=== PATIENT | male | born 1945 | race Caucasian/White ===

== ENCOUNTER 2017-12-01 10:37 | Inpatient (IN) | payer OTHER ==
[~2017-12-01] VITALS: Ht 170.1 cm; Wt 65.8 kg
--- NOTE | ~2017-12-01 | WRIGHTHP ---
[place], [place] PATIENT HISTORY AND PHYSICAL EXAM NAME: [facility]: [id number] UNIT #: [id number] ROOM: 314 DOCTOR: ERIN MCKEON MD BIRTHDATE: [birth year] DOS: 12/02/2017 INITIAL PSYCHIATRIC EVALUATION CHIEF COMPLAINT: "I have been here for 3 or 4 days, I am hope I am not here much longer." HISTORY OF PRESENT ILLNESS: This is a 72-year-old white male sent here on an involuntary basis from [facility]. The patient had presented there with family with altered mental status. The patient has been very bizarre and has been placing his keys in a sink, filling it with water repeatedly. He has been talking nonsensically. He is actively hallucinating and responding to unforeseen others. He has not been attending to his ADLs well and has been so grossly confused that family is concerned for his safety. He is admitted now to rule out organic factors, to stabilize on medication, to engage in individual and ambrocio milieu activity, to determine the least restrictive environment to which he can return. PAST MEDICAL HISTORY: Remarkable for major depression, recurrent. Hypertension, GERD, basal cell carcinoma, renal calculi, left inguinal hernia and Parkinson disease. SOCIAL HISTORY: He does not drink alcohol, use illicit drugs or smoke cigarettes currently. He did smoke when he was a younger man, but quit. ALLERGIES: HE LISTS ALLERGIES TO SUCCINYLCHOLINE AND TERAZOSIN. STRENGTHS: Good verbal skills and ambulatory. WEAKNESSES: Poor coping skills and cognitive decline. MENTAL STATUS: He is alert and oriented to person, place and that he knows he is in the hospital, but not time. He is very disjointed and fragmented in his thinking and grossly tangential and circumstantial. He has flight of ideas and jumps from topic to topic. Much of his rambling seems nonsensical as well. He does seem to be responding to unforeseen others. Memory for short term events is poor. DIAGNOSIS: Major depression, recurrent with psychotic features, rule out Alzheimer dementia. PLAN: I have already started him on Exelon patch 4.6 mg a day along with Namenda 5 mg a day. I will discontinue Cymbalta due to ineffectiveness and start him on Remeron 15 mg at bedtime to combat the depression. Remeron also has a secondary effect of improving Parkinson disease symptomatology. I will add Seroquel 25 mg twice daily as a low dose antipsychotic that has a very good EPS profile. We will engage in individual and ambrocio milieu activity. Will consult psychology regarding an opinion regarding competency and proceed with guardianship if warranted. [place], [place] PATIENT HISTORY AND PHYSICAL EXAM NAME: BRANDIN AYALA UNIT #: [id number] ROOM: [facility] DOCTOR: ERIN MCKEON MD BIRTHDATE: [birth year] ERIN MCKEON MD CM:HISPHYS:PATIENT HISTORY AND PHYSICAL EXAMINATION 7 1027 ERIN MCKEON MD 12/02/17 1025 interface
--- NOTE | ~2017-12-01 | PR ---
[place], [place] PROGRESS NOTE [id number] UNIT #: [id number] ROOM: 317 DOCTOR: IRVIN, PHD ZULEIKA BIRTHDATE: [birth year] DOS: 12/04/2017 I followed up with the patient today to reassess his cognitive status with respect to guardianship. He continues to exhibit significant confusion and did not respond appropriately to questions. In my opinion, he would benefit from utilizing his healthcare power of family law attorney to help him make healthcare decisions as he is clearly not competent at this time. Sherri Blake, PhD CM:NOY 1707 PHD ZULEIKA BLAKE 12/05/17 0036 interface
--- NOTE | ~2017-12-01 | PR ---
[place], [place] PROGRESS NOTE NAME: BRANDIN AYALA UNIT #: [id number] ROOM: 317 DOCTOR: IRVIN, PHD TO BIRTHDATE: [birth year] DOS: 12/03/2017 The patient remains delirious with significant urinary tract infection. We will continue to follow to assess for competency. Sherri Blake, PhD CM:PNTRANS 1733 [id number] PHD ZULEIKA BLAKE 12/04/17 0533 interface
--- NOTE | ~2017-12-01 | PR ---
[place], [place] PROGRESS NOTE NAME: BRANDIN AYALA UNIT #: [id number] ROOM: 317 DOCTOR: ERIN MCKEON MD BIRTHDATE: [birth year] DOS: 12/05/2017 ADDENDUM Above note reviewed. Agree with observations, recommendations, and overall treatment plan. ERIN MCKEON MD CM:PNTRANS 0 9 ERIN MCKEON MD 01/23/1840 interface
--- NOTE | ~2017-12-01 | PN ---
[place], [place] PROGRESS NOTE NAME: BRANDIN AYALA UNIT #: [id number] ROOM: 317 DOCTOR: ERIN MCKEON MD BIRTHDATE: [birth year] DATE: 12/04/17 ADDENDUM: ERIN MCKEON MD 01/22/18920 Above note reviewed. Agree with observations, recommendations, and overall treatment plan. ERIN MCKEON MD CM:PNTRANS 0 1452 TM ERIN MCKEON MD 01/23/18 0808 [place] MIS.TM
--- NOTE | ~2017-12-01 | CON ---
[place], [place] REPORT OF CONSULTATION NAME: BRANDIN AYALA UNIT #: [id number] ROOM: 314 DOCTOR: PHD IRVIN ZULEIKA BIRTHDATE: [birth year] DOS: 12/02/2017 HISTORY OF PRESENT ILLNESS: The patient is a 72-year-old male referred by Dr. Waterman for a competency evaluation. At the present time, the patient is on the [facility] at [facility]. The patient is and does not have any children. He did not provide a direct answer for his past appointment. He denied alcohol, tobacco and illegal drug use. PAST MEDICAL HISTORY: Depression, hypertension, GERD, basal cell carcinoma, renal calculi, left inguinal hernia, Parkinson's disease, major depressive disorder, recurrent. MEDICATIONS: Seroquel, Remeron, Exelon, Namenda, Geodon, Cipro, Ativan, Cymbalta. PHYSICAL EXAMINATION: The patient was awake, alert and oriented to person and place. He gave the date as 12/31/2017. He provided the president and past president, but no current events. Affect appear to be noteworthy for masked facies. Mood was stable. He denied suicidal and homicidal ideation. He demonstrated a bilateral pill rolling tremor and shuffling gait. The patient stated he stopped taking his medications prior to admission because they upset his stomach. He could not state what the medications were or what they were intended to treat. He indicated that since he stopped taking the medications, he has been doing "better than ever." Speech was soft. Thought process was tangential and noteworthy for flight of ideas. There were no overt hallucinations. Behavior was noteworthy for nearly urinating in a cup. IMPRESSION: I spoke with the patient's sister about the patient's baseline mental status. She stated that he has been confused off and on for the past few months, but believes that this confusion has been due to the medication changes he has been going through recently. In my opinion, the patient's current UTI is a contributing factor to his mental status and determination will be deferred until tomorrow to allow for continued treatment. DIAGNOSIS: Delirium, not otherwise specified. Thank you very much for this consult. Sherri Blake, PhD CM:CONSTR:REPORT OF CONSULTATION 1701 12/03/17 0010 interface
--- NOTE | ~2017-12-01 | PR ---
[place], [place] PROGRESS NOTE NAME: BRANDIN AYALA UNIT #: [id number] ROOM: 317 DOCTOR: ERIN MCKEON MD BIRTHDATE: [birth year] DOS: 12/04/2017 ADDENDUM Above note reviewed. Agree with observations, recommendations, and overall treatment plan. ERIN MCKEON MD CM:PNTRANS 0 [phone] ERIN MCKEON MD 01/23/18 0638 interface
--- NOTE | ~2017-12-01 | PR ---
[place], [place] PROGRESS NOTE NAME: [id number] UNIT #: [id number] ROOM: 317 DOCTOR: ERIN MCKEON MD BIRTHDATE: [birth year] DOS: 12/08/2017 INTERVAL NOTE CHIEF COMPLAINT: "I feel so much better doc. Thank you for everything you have done." SUMMARY OF THE VISIT: The patient was interviewed in the dining area where he was finishing his breakfast. He stood and shook my hand and thanked me profusely for everything I have done stating that he is feeling so much better. He is anxious to be able to return home as he is concerned about his sister. He was able to joke with me a little this morning. He convincingly denies medication side effects. MENTAL STATUS: He is alert and oriented with some time gaps. Mood does seem to be strongly trending towards euthymia. Affect is much more appropriate. There is no claudette or hypomania. No auditory or visual hallucinations are noted. Short term memory has some mild gaps, otherwise he is intact. PLAN: I will maintain his current psychotropic regimen. We will continue to engage him in individual and ambrocio milieu activity. We will finalize discharge plans returning to the least restrictive environment when psychiatrically stable. ERIN MCKEON MD CM:PNTRANS 0942 0250 ERIN MCKEON MD 12/09/17 0247 interface
--- NOTE | ~2017-12-01 | PR ---
[place], [place] PROGRESS NOTE NAME: BRNADIN AYALA UNIT #: [id number] ROOM: 317 DOCTOR: ERIN MCKEON MD BIRTHDATE: [birth year] DOS: 12/03/2017 CHIEF COMPLAINT: "You know I have UTI that usually makes me kind of crazy." SUMMARY OF THE VISIT: The patient was interviewed as he was sitting at the back of the dining area. He engaged readily in conversation. He continues to show episodic confusion and reports to me that he has been in the hospital for about 4-5 days now. He was able to tell me what he had for breakfast, but his memory gaps do seem to be patchy. Nurses report periods when he seems to be alert and oriented x 3 and other times when he is grossly confused. MENTAL STATUS EXAMINATION: On mental status this morning, he is alert and oriented to person, place, but not time. Mood does seem to be more euthymic. Affect is more appropriate. There is no claudette, hypomania, or psychosis. Short-term memory has gaps. PLAN: I will further increase his Exelon patch from 4.6 to 9.5 mg a day. He also requested something for constipation and I will order him Dulcolax straight at this point. Engage in individual and ambrocio milieu activity. Continue to support and monitor. ERIN MCKEON MD CM:PNTRANS [phone] 18 ERIN MCKEON MD 12/03/17 2216 interface
--- NOTE | ~2017-12-01 | DS ---
[place], [place] DISCHARGE SUMMARY NAME: BRANDIN AYALA [facility] #: [id number] UNIT #: [id number] ROOM: 317 DOCTOR: ERIN MCKEON MD BIRTHDATE: [birth year] DOS: 12/09/2017 CHIEF COMPLAINT: "I have been here 3 or 4 days, I hope I am not here much longer." HISTORY OF PRESENT ILLNESS: This is a 72-year-old white male who was sent here on an involuntary basis from [facility]. The patient had presented there with family with an altered mental status. The patient has been acting very bizarre. He has been placing his keys in the sink and filling it with water repeatedly. He has been talking nonsensically. He has been actively hallucinating and responding to unforeseen others. He has not been attending to his ADLs and he has been grossly confused and family is concerned for his safety. He is admitted now to rule out organic factors, to stabilize on medication and to engage in individual and ambrocio milieu activity. SUMMARY OF HOSPITAL COURSE: The patient was admitted to the unit where he was started on Exelon patch 4.6 mg daily in an order to improve or maintain ADLs, behavior and cognition. This was augmented then with Namenda 5 mg a day. His Cymbalta was discontinued due to ineffectiveness and he was started on Remeron [address]. Additionally, Seroquel 25 mg twice daily was initiated to help increase the effectiveness of the Remeron, to decrease his psychotic symptomatology and to decrease some of his anxiety. He tolerated all these medicines well. The Seroquel did not exacerbate his underlying parkinsonian symptoms. Over the course of time, his Exelon patch was gradually increased to its maximum dose of 13.3 mg daily, while the Namenda likewise was increased to its maximum dose of 10 mg twice daily. The Seroquel dose was increased from 25 mg twice daily to 25 mg 3 times daily with adequate results. The patient improved dramatically with this combination of medications. He was much more compliant and pleasant. He was not acting bizarrely. He did have episodes of increasing confusion, but these were lessening in frequency and intensity. He had improved sufficiently to return home. MENTAL STATUS AT DISCHARGE: The patient is alert and oriented to person, place and very approximate to time. Mood does seem to be strongly trending towards euthymia. Affect is much more appropriate. There is no claudette, hypomania or psychosis. Short term memory has gaps, otherwise he is intact. FINAL DIAGNOSES: Major depression, recurrent with psychotic features and Alzheimer's dementia. DISPOSITION: The patient All of his prescriptions have been printed and will be sent home with him. He will have followup in the community by the psychiatrist of his choice. [place], [place] DISCHARGE SUMMARY NAME: BRANDIN AYALA UNIT #: [id number] ROOM: 317 DOCTOR: ERIN MCKEON MD BIRTHDATE: [birth year] ERIN MCKEON MD CM:DISCHKELVIN 1102 26 ERIN MCKEON MD 12/09/172223 interface
[2017-12-01] MEDS ORDERED: NORVASC5 MG PO (10:44)
[2017-12-01] MEDS ORDERED: MIRAPEX0.25 M1 PO (10:45)
[2017-12-01] MEDS ORDERED: CYMBALTA30 MG PO (10:46)
[2017-12-01] MEDS ORDERED: NATURE'S BLEND F1 MG PO (10:47)
[2017-12-01 14:38] VITALS: BP 131/70
[2017-12-01 19:23] VITALS: BP 115/68
[2017-12-01 20:26] VITALS: BP 115/68
[2017-12-01 21:45] LABS: BILIRUBIN NEGATIVE (NEGATIVE); BLOOD 3+ (NEGATIVE); CLARITY SL CLOUDY (CLEAR); COLOR YELLOW (YELLOW); GLUCOSE NEGATIVE (NEGATIVE); KETONE NEGATIVE (NEGATIVE); LEUKO ESTERASE 3+ (NEGATIVE); NITRITE POSITIVE (NEGATIVE); PH 8.5 (5.0-9.0)
[2017-12-01 21:56] LABS: BACTERIA 4+; WBC 21-30 wbc/hpf (0-5)
[2017-12-02 06:28] LABS: BASO % 0.4 % (0.0-1.0); EOS # 0.2 10*3/uL (0.0-0.4); EOS % 1.7 % (1.0-4.0); HEMATOCRIT 40.1 % (42.0-52.0); HEMOGLOBIN 14.3 g/dl (14.0-18.0); LYMPH # 2.5 10*3/uL (1.3-4.4); LYMPH % 23.1 % (27.0-41.0); MEAN CELL VOLUME 91.3 fl (80.0-94.0); MEAN CORPUSCULAR HGB 32.6 pg (27.0-31.0); MEAN CORPUSCULAR HGB CONC 35.7 g/dl (33.0-37.0); MEAN PLATELET VOLUME 9.1 fl (9.6-12.3); MONO # 0.8 10*3/uL (0.1-1.0); MONO % 7.4 % (3.0-9.0); NEUT # 7.3 10*3/uL (2.3-7.9); NEUT % 67.1 % (47.0-73.0); PLATELET COUNT AUTOMATED 176 10*3/uL (130-400); RED BLOOD COUNT 4.39 10*6/uL (4.50-5.90); RED CELL DISTRI WIDTH 12.9 % (0-14.5); WHITE BLOOD COUNT 10.9 10*3/uL (4.8-10.8)
[2017-12-02 06:42] LABS: ALBUMIN 3.6 gm/dl (3.1-4.5); BUN 21 mg/dl (7-24); CHLORIDE 106 mmol/L (98-107); CHOLESTEROL 109 mg/dL (<200); CREATININE 0.79 mg/dL (0.70-1.30); POTASSIUM 3.4 mmol/L (3.5-5.1); SGOT/AST 17 IU/L (3-35); SGPT/ALT 21 U/L (12-78); SODIUM 139 mmol/L (136-145); TRIGLYCERIDES 45 mg/dl (<150); VLDL CHOLESTEROL 9 mg/dL (6-40)
[2017-12-02 06:51] LABS: ALKALINE PHOSPHATASE 73 U/L (45-117); HDL CHOLESTEROL 56 mg/dl (40-60); LDL CHOLESTEROL 44 mg/dL (9-159); TOTAL PROTEIN 6.7 gm/dL (6.4-8.2)
[2017-12-02 07:33] VITALS: BP 134/70
[2017-12-02 19:38] VITALS: BP 128/68
[2017-12-03 07:46] VITALS: BP 121/72
[2017-12-03 19:54] VITALS: BP 142/79
[2017-12-04 07:54] VITALS: BP 136/81
[2017-12-04 20:00] VITALS: BP 128/70
[2017-12-05 07:51] VITALS: BP 128/66
[2017-12-05 20:01] VITALS: BP 121/73
[2017-12-06 07:34] LABS: BUN 13 mg/dl (7-24); CHLORIDE 105 mmol/L (98-107); CREATININE 0.81 mg/dL (0.70-1.30); POTASSIUM 4.1 mmol/L (3.5-5.1); SODIUM 141 mmol/L (136-145)
[2017-12-06 07:36] VITALS: BP 113/74
[2017-12-06 20:00] VITALS: BP 118/70
[2017-12-07 07:12] VITALS: BP 122/74
[2017-12-07 19:54] VITALS: BP 116/70
[2017-12-08 08:59] VITALS: BP 138/78
[2017-12-08 20:34] VITALS: BP 135/76
[2017-12-09 08:21] VITALS: BP 149/86
[2017-12-09] MEDS ORDERED: QUETIAPINE FUMA25 MG PO (10:55)
[2017-12-09] MEDS ORDERED: MIRTAZAPINE15 M2 PO (10:55)
[2017-12-09] MEDS ORDERED: MEMANTINE HCL10 MG PO (10:55)
[2017-12-09] MEDS ORDERED: EXELON13.3 MG/21 T (10:55)
== END 2017-12-09 13:24 | disposition home or self-care (01) | DRG 885 ==
LOC: 3N 10:37
PROVIDERS: Psychiatry & Neurology Psychiatry
PROC: 0HBRXZZ Excision of Toe Nail, External Approach (ICD-10-PCS; principal; 2017-12-02)
DX: F33.3 Major depressive disorder, recurrent, severe with psychotic symptoms (principal); F23 Brief psychotic disorder; N39.0 Urinary tract infection, site not specified; G20 Parkinson's disease; K21.9 Gastro-esophageal reflux disease without esophagitis; G30.9 Alzheimer's disease, unspecified; F02.80 Dementia in other diseases classified elsewhere, unspecified severity, without behavioral disturbance, psychotic disturbance, mood disturbance, and anxiety; I10 Essential (primary) hypertension; Z87.442 Personal history of urinary calculi; Z85.89 Personal history of malignant neoplasm of other organs and systems; Z88.8 Allergy status to other drugs, medicaments and biological substances; Z79.899 Other long term (current) drug therapy

== ENCOUNTER 2018-04-27 19:25 | Inpatient (IN) | payer OTHER ==
[~2018-04-27] VITALS: Ht 167.6 cm; Wt 65.1 kg
--- NOTE | ~2018-04-27 | PR ---
[place], [place] PROGRESS NOTE NAME: BRANDIN AYALA UNIT #: [id number] ROOM: 315 DOCTOR: ERIN MCKEON MD BIRTHDATE: [birth year] DOS: 04/30/2018 INTERVAL NOTE CHIEF COMPLAINT: "I just want to know what people are saying about me and my sister." SUMMARY OF THE VISIT: The patient was interviewed in the dining area where he was eating his breakfast. He continues to be very anxious and perseverative, very much focused on people plotting against him or talking about him. This behavior intensifies in the evening hours when he becomes almost unmanageable and does require p.r.n. intervention. MENTAL STATUS: He remains alert and oriented with time gaps. Mood does seem to be trending towards euthymia, but there is a great deal of anxiety and paranoia present. Short-term memory does have significant gaps. PLAN: I will increase his Fanapt from 2 mg twice a day to 4 mg twice a day as we attempt to bring him therapeutic, attempting to lessen psychosis without exacerbating his underlying parkinsonian symptoms. We will engage in individual and ambrocio milieu activities, returning then to the least restrictive environment when psychiatrically stable. ERIN MCKEON MD CM:PNTRANS 1312 ERIN MCKEON MD 04/30/18 1313 interface
--- NOTE | ~2018-04-27 | PR ---
[place], [place] PROGRESS NOTE NAME: [facility] [id number] UNIT #: [id number] ROOM: 317 DOCTOR: ERIN MCKEON MD BIRTHDATE: [birth year] DOS: 05/06/2018 CHIEF COMPLAINT: The patient was somnolent. SUMMARY OF THE VISIT: The patient was attempted to be interviewed as he was sitting in the dining area. He was rather somnolent and hard to arouse. Nurses report that yesterday was a much better day that his tremors seemed less and his agitation was less. He was also much more goal directed in his thinking. He did have breakfast this morning and afterwards that seem to tire him out. MENTAL STATUS: My mental status is limited due to his overall level of somnolence. PLAN: I will maintain his current psychotropic regimen and allow him some time to adjust to the medication changes. Monitor for risk, benefit, engage in individual and ambrocio milieu activity, returning then to the least restrictive environment when psychiatrically stable. ERIN MCKEON MD CM:PNTRANS 1253 0423 ERIN MCKEON MD 05/07/18 0423 interface
--- NOTE | ~2018-04-27 | PR ---
[place], [place] PROGRESS NOTE [id number] UNIT #: [id number] ROOM: 317 DOCTOR: ERIN MCKEON MD BIRTHDATE: [birth year] DOS: 05/08/2018 CHIEF COMPLAINT: "Can I stay here permanently. You will think I am crazy, but there is a emery here that has it in for me." SUMMARY OF THE VISIT: The patient requested to talk to me in private. He at first asked if he could stay here permanently. When I told him that this was an acute care hospital and we ultimately would need to step him down back to [facility] as we await for the Nuplazid to work, he understood. He then told me that there is another patient here that he perceives as trying to get him that he is making comments and staring him down. I did reinforce that we would be watching closely for such things and making certain that we would protect both gentleman involved. Otherwise, from a physical standpoint, he is ambulating much more steadily. His hand tremors have almost completely dissipated. He is much more conversant and much more spontaneous. MENTAL STATUS: He is alert and oriented with time gaps. Mood does seem to be trending towards euthymia. Affect is more appropriate. There is no claudette or hypomania. The psychosis is lessening, but there is still baseline paranoia. Memory has gaps. PLAN: I will go ahead and check a valproic acid level tomorrow at 1500 hours to see if the Depakote ER is therapeutic, may need to adjust by another 500 mg or so to bring it into the range of 60-80. We will continue to support and monitor. Continue to engage in individual and ambrocio milieu activity, returning then to the least restrictive environment when psychiatrically stable. ERIN MCKEON MD CM:PNTRANS 0851 1433 ERIN MCKEON MD 05/08/18 1433 interface
--- NOTE | ~2018-04-27 | PR ---
[place], [place] PROGRESS NOTE NAME: BRANDIN AYALA UNIT #: [id number] ROOM: 317 DOCTOR: ERIN MCKEON MD BIRTHDATE: [birth year] DOS: 05/01/2018 CHIEF COMPLAINT: "Morning." SUMMARY OF THE VISIT: The patient was interviewed or attempted to be interviewed as he was resting in bed. He was very somnolent and hard to arouse and eventually I did get him to make eye contact, say good morning, but he nodded back off. He got very agitated and aggressive last evening acting very bizarrely once again with sundowning type behavior. With this was in the company of increase in his paranoia and hallucinations. This seems to be happening now consistently every evening requiring p.r.n. intervention, which eventually works, but has now caused him to have some residual somnolence in the morning. MENTAL STATUS: Limited to the fact that he is alert to self. Could not test any further because of his overall level of somnolence. PLAN: I will go ahead and increase the Fanapt increasing specifically the nighttime dose, so I will make the dose 4 mg in the morning and 8 mg at 1700 hours to try to head off this sundowning type behavior. I will simultaneously increase the Artane from 2 mg t.i.d. to 5 mg b.i.d. to decrease some of the parkinsonian symptoms that he is experiencing. We will monitor for risk, benefits, engage in individual and ambrocio milieu activity, returning to the least restrictive environment when psychiatrically stable. ERIN MCKEON MD CM:PNTRANS 0847 1514 ERIN MCKEON MD 05/01/18 1514 interface
--- NOTE | ~2018-04-27 | EKG ---
[place], [place] ELECTROCARDIOGRAM REPORT NAME: BRANDIN AYALA UNIT #: [id number] ROOM: 315 DOCTOR: THAO DRAFT REPORT BIRTHDATE: [birth year] [facility] Test Date: 2018-04-27 Test Time: 19:48:09 Pat Name: BRANDIN AYALA Department: Room: [facility] Gender: M Archivist Economic History: CHARY : 1945 Requested By: WARREN CASTILLO PA-C Order Number: [id number] Reading MD: Carlota Wen MD Measurements Intervals [place] Rate: 75 P: 38 ND: 166 QRS: -63 QRSD: 92 T: 57 QT: 383 QTc: 428 Interpretive Statements Sinus rhythm Inferior infarct, old Electronically Signed On 04-29-2018 14:13:49 PST by Carlota Wen MD CM:EKGRPT:ELECTROCARDIOGRAM REPORT 47 1413 WARREN OSUNA DRAFT REPORT WARREN CASTILLO PA-C
--- NOTE | ~2018-04-27 | PR ---
[place], [place] PROGRESS NOTE NAME: BRANDIN AYALA UNIT #: [id number] ROOM: 315 DOCTOR: ERIN MCKEON MD BIRTHDATE: [birth year] DOS: 04/29/2018 INTERVAL NOTE CHIEF COMPLAINT: "I did something and they took pictures, just because of that it does not make me desai you know." SUMMARY OF THE VISIT: The patient was interviewed in the dining area where he was working on a puzzle. He stopped and engaged readily in conversation with me. He continues to be very paranoid and delusional, now fixated on reported pictures that were taken at a [employer] that showed him in a potentially compromising situation. He has alternated between being fixated on this and still being somewhat paranoid regarding a hitman coming to kill him. He was not outwardly shaking near as much as he had been yesterday, so the Artane may already be impacting positively on his tremors. MENTAL STATUS: He is alert and oriented with significant time gaps. Mood does seem to be very depressed with anxious overtones and significant paranoia. Short-term memory remains problematic. PLAN: I will continue my gradual titration of the Fanapt increasing it from 1 mg twice a day to 2 mg twice a day, maintain his other psychotropics, engage in individual and ambrocio milieu activities, returning then to the least restrictive environment when psychiatrically stable. ERIN MCKEON MD CM:PNTRANS 1137 1147 ERIN MCKEON MD 04/29/18 1147 interface
--- NOTE | ~2018-04-27 | WRIGHTHP ---
[place], [place] PATIENT HISTORY AND PHYSICAL EXAM NAME: BRANDIN AYALA [facility] #: [id number] UNIT #: [id number] ROOM: 315 DOCTOR: ERIN MCKEON MD BIRTHDATE: [birth year] DOS: 04/28/2018 CHIEF COMPLAINT: "Something has to be done. They were going to send a hitman after me." HISTORY OF PRESENT ILLNESS: This is a 72-year-old white male known to me from his stay at [facility] as well as a previous admission here to the [facility]. The patient was sent from [facility] here due to worsening paranoia. The patient was very fearful that the facility was hiring a hitman to kill him. He reports that he overheard the nurses talking about this. He also was very concerned that his sister was starving to and was not going to be getting food or the care she needed. He is very fearful and anxious and is not able to function. He is not attending to his ADLs. He has not been sleeping well. He has not been eating well. He is admitted now to rule out organic factors and attempt to stabilize on medication. PAST MEDICAL HISTORY: Remarkable for hypertension, GERD, basal cell carcinoma, renal calculi, left inguinal hernia and Parkinson's disease. The patient is a former smoker, having smoked a half a pack a day for about 8 years, quitting in 1973. He is a social drinker. He does not use illicit drugs. ALLERGIES: He lists allergies to succinylcholine and terazosin. STRENGTHS: Ambulatory, good verbal skills. WEAKNESSES: Poor coping skills and chronic psychiatric problems. MENTAL STATUS: The patient is alert and oriented to person, place, but not necessarily time. Mood does seem to be very depressed with anxious overtones. He is very paranoid and delusional. There is no claudette or hypomania. Short-term memory has gaps. PLAN: I will discontinue his Risperdal as this is too strongly an antipsychotic and could exacerbate his Parkinsons. I will use Fanapt 1 mg b.i.d. and titrate upwards. Fanapt has a very favorable extrapyramidal symptom side effect profile. I will start him on Artane 2 mg t.i.d. and consider Sinemet. We will also discuss the possibility of trying him on Nuplazid. We will engage in individual and ambrocio milieu activities, returning to the least restrictive environment when psychiatrically stable. [place], [place] PATIENT HISTORY AND PHYSICAL EXAM NAME: BRANDIN AYALA UNIT #: [id number] ROOM: [facility] DOCTOR: ERIN MCKEON MD BIRTHDATE: [birth year] ERIN MCKEON MD CM:HISPHYS:PATIENT HISTORY AND PHYSICAL EXAMINATION 0950 1028 ERIN MCKEON MD 04/28/18 1029 interface
--- NOTE | ~2018-04-27 | PR ---
[place], [place] PROGRESS NOTE [id number] UNIT #: [id number] ROOM: 317 DOCTOR: DEEPA MORALES DPM BIRTHDATE: [birth year] DOS: 05/04/2018 SUBJECTIVE: This patient is seen for followup of a left leg wound. The patient has no complaints of pain. Denies fever or chills. Denies calf pain. OBJECTIVE: Neurovascular status is unchanged. There is still eschar present noted at the anteromedial aspect to the left lower leg. No surrounding erythema, no purulent drainage or malodor. No clinical signs of infection. ASSESSMENT: Left leg ulcer, noninfected. PLAN: Evaluation and management. Continue with local wound care to the area. Continue with current treatment plan. Continue offloading. Continue to follow while in the hospital. DEEPA MORALES DPM CM:PNTRANS [id number] DEEPA MORALES DPM 05/04/18 1444 interface
--- NOTE | ~2018-04-27 | CON ---
[place], [place] REPORT OF CONSULTATION NAME: BRANDIN AYALA [facility] #: [id number] UNIT #: [id number] ROOM: 317 DOCTOR: PHD IRVIN ZULEIKA BIRTHDATE: [birth year] DOS: 05/04/2018 HISTORY OF PRESENT ILLNESS: The patient is a 72-year-old male referred by Dr. Waterman for competency evaluation. At the present time, the patient is on the [facility] at [facility]. He is and does not have any children. 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 He denied alcohol, tobacco or illegal drug use. PAST MEDICAL HISTORY: Hypertension, GERD, basal cell carcinoma, renal calculi, left inguinal hernia, and Parkinson's disease. MEDICATIONS: Depakote Sprinkle, Desyrel, Artane, Senokot, Mirapex, Zestril, Colace, vitamin D, folic acid, Norvasc, Exelon, Tylenol, Namenda, Geodon, Bactroban, Ativan. The patient was awake, alert and oriented to person, place, and generally to time. Affect was flat and mood was stable. He denied suicidal or homicidal ideation, plan and intent. He appeared to be guarded and paranoid. Speech was slow, soft and at times difficult to decipher. He did not consistently respond to questions appropriately. At times, he appeared to be responding to internal stimuli. He demonstrated some short term memory deficits during the assessment. He could not name the president or any current events. He was difficult to redirect in conversation as he jumped from topic to topic. He does not appear to be competent to make informed healthcare decisions at this time. His sister is his power of bark tanner for healthcare and all healthcare decisions should be deferred to her. DIAGNOSES: Unspecified neurocognitive disorder; major depressive disorder, recurrent, severe with psychotic features. RECOMMENDATIONS: In my opinion, this patient is not competent to make informed healthcare decisions. All healthcare decisions should be deferred to his healthcare power of bark tanner who is his sister. Thank you very much for this consult. Sherri Blake, PhD CM:CONSTR:REPORT OF CONSULTATION 1704 05/05/18 1406 interface
--- NOTE | ~2018-04-27 | DS ---
[place], [place] DISCHARGE SUMMARY NAME: BRANDIN AYALA [facility] #: [id number] UNIT #: [id number] ROOM: 317 DOCTOR: ERIN MCKEON MD BIRTHDATE: [birth year] DOS: 05/12/2018 CHIEF COMPLAINT: "Something has to be done. They are going to send the hitman after me." HISTORY OF PRESENT ILLNESS: This is a 72-year-old white male known to me from his stay at [facility] as well as a previous admission here to the [facility]. The patient was sent here from [facility] due to worsening paranoia. He is very fearful that the facility was sending a hitman to kill him. He reports that he overheard multiple nurses talking about this and is very concerned that he is going to be killed in his sleep. He is also very concerned that his sister, who is struggling with multiple sclerosis is starving to and is not fully getting food or the care she needs. He is very fearful and anxious and is not able to function. He was admitted here because of his significant psychiatric and medical decline. SUMMARY OF THE VISIT: The patient was admitted, where his Risperdal was stopped because it was a strong antipsychotic with significant extrapyramidal symptoms. He was started on Fanapt, but this too did seem to exacerbate his Parkinson, so ultimately the Fanapt was discontinued. He was started on Artane to decrease his significant tremors and the dose was started at 2 mg t.i.d. and eventually brought up to 5 mg twice a day. Ultimately, after the Fanapt was stopped, it was felt that the only drug that was reasonable to decrease his psychosis and hallucinations due to the Parkinson was Nuplazid. Samples were obtained and given to him and he was started on Nuplazid 34 mg at bedtime with excellent results. The patient improved significantly with this combination. He was also on Exelon patch 13.3 mg a day and Namenda 10 mg twice daily to impact positively on ADLs, behavior and cognition. The patient had started to improve significantly and it was felt that further improvement would be continued once he was readmitted to [facility]. He was sent back there for further care. MENTAL STATUS AT DISCHARGE: He is alert and oriented with significant time gaps. Mood does seem to be strongly trending towards euthymia. Affect is much more appropriate. There is no claudette or hypomania. There is no gross psychosis, although this is somewhat sketchy and does seem to worsen in the evening. His memory also is poor, especially for short term events. DIAGNOSIS UPON DISCHARGE: Major depression, recurrent; intermittent explosive disorder and Alzheimer's dementia. DISPOSITION: All of his prescriptions have been E-scribed to [facility], which is a long-term care pharmacy. At the time of discharge, he was medically stable and psychiatrically, there was no acute issues. [place], [place] DISCHARGE SUMMARY NAME: BRANDIN AYALA UNIT #: [id number] ROOM: 317 DOCTOR: ERIN MCKEON MD BIRTHDATE: [birth year] ERIN MCKEON MD CM:ALEXIS [id number] ERIN MCKEON MD 05/12/18 1034 interface
--- NOTE | ~2018-04-27 | PR ---
[place], [place] PROGRESS NOTE NAME: BRANDIN AYALA UNIT #: [id number] ROOM: 317 DOCTOR: ERIN MCKEON MD BIRTHDATE: [birth year] DOS: 05/03/2018 CHIEF COMPLAINT: "The patient talked nonsensical." SUMMARY OF THE VISIT: The patient was interviewed or attempted to be interviewed as he was sitting in a Amanda chair in the dining area. He made a little to no sense and did not respond to me, but seem to be responding to unforeseen others. Yesterday, the nurses report he had a horrible late afternoon, evening. He became increasingly psychotic and very agitated and aggressive. He required the use of p.r.n. intervention that eventually worked causing a little bit of early morning babysitter somnolence, but no other side effects. MENTAL STATUS: He is alert and oriented to self only. He is very confused and disjointed. His thoughts are fragmented and piecemeal and he is grossly psychotic. PLAN: I will discontinue the Sinemet that I started yesterday as this could already be feeling psychosis. I will adjust the trazodone to be given 150 mg at 1600 hours and utilize another 150 mg at bedtime p.r.n., should he require intervention. I will also increase his Fanapt to 4 mg in the morning and 12 mg at bedtime, trying to help him sleep and offset some of this nighttime behavior. We will engage in individual and ambrocio milieu activity, returning to the least restrictive environment when psychiatrically stable. ERIN MCKEON MD CM:PNTRANS [id number] ERIN MCKEON MD 05/04/18 0449 interface
--- NOTE | ~2018-04-27 | PR ---
[place], [place] PROGRESS NOTE NAME: BRANDIN AYALA UNIT #: [id number] ROOM: 317 DOCTOR: ERIN MCKEON MD BIRTHDATE: [birth year] DOS: 05/04/2018 CHIEF COMPLAINT: "Oh, I need somebody to help me get dressed." SUMMARY OF THE VISIT: The patient was interviewed as he was resting in a Amanda chair in the dining area. He was more awake this morning than yesterday. Nurses report that he continues to and become increasingly delusional and psychotic and agitated in the evening, requiring p.r.n. intervention. MENTAL STATUS EXAMINATION: This morning, he is alert and oriented with significant time gaps. Mood was more euthymic. Affect more appropriate. There is no hypomania or claudette. He is rather confused and disjointed and fragmented in his thinking. PLAN: At this point in time, I will discontinue his Fanapt as this seems to be exacerbating his movement disorder. I will start him on Depakote Sprinkles 250 mg twice daily and 500 mg at bedtime in a way to stabilize mood without utilizing an antipsychotic. Will engage in individual and ambrocio milieu activity, returning to the least restrictive environment when psychiatrically stable. ERIN MCKEON MD CM:PNTRANS [id number] 140 ERIN MCKEON MD 05/04/18 1403 interface
--- NOTE | ~2018-04-27 | PR ---
[place], [place] PROGRESS NOTE NAME: BRANDIN AYALA UNIT #: [id number] ROOM: 317 DOCTOR: ERIN MCKEON MD BIRTHDATE: [birth year] DOS: 05/05/2018 CHIEF COMPLAINT: "Oh good morning, Dr. Mckeon, how are you?" SUMMARY OF THE VISIT: The patient was interviewed in the dining area where one of the aides was helping him eat. He had eaten in an entire tray of breakfast and was asking for seconds. Nurses report that his appetite has been very good. He is still not necessarily sleeping through the night, but he napped frequently yesterday. He is much more awake and interactive once I discontinued the Fanapt and his jerking motions have dramatically improved. This is the second antipsychotic now that he has had a significant side effect with. He seems extremely prone to the extrapyramidal symptoms of antipsychotics and is definitely a Nuplazid candidate. With the Depakote in place, he does seem to be more stable and is tolerating it well. I will support and monitor. MENTAL STATUS: He is alert and oriented with time gaps. Mood does seem to be more stable, but does still experience lability and nurses report that he sundowns in the evening. There are no overt auditory or visual hallucinations at the present, but these too worsen in the evening. His short term memory does have gaps. PLAN: I will renew his Ativan p.r.n., should he require intervention. I am working with pharmacy to see if we can obtain the Nuplazid and would plan to start this if at all possible. Continue to support and monitor, engage in individual and ambrocio milieu activity, returning to the least restrictive environment when psychiatrically stable. ERIN MCKEON MD CM:PNTRANS 1039 ERIN MCKEON MD 05/05/18 1040 interface
--- NOTE | ~2018-04-27 | PR ---
[place], [place] PROGRESS NOTE NAME: BRANDIN AYALA UNIT #: [id number] ROOM: 317 DOCTOR: ERIN MCKEON MD BIRTHDATE: [birth year] DOS: 05/07/2018 CHIEF COMPLAINT: "Oh, when do I get to leave here." SUMMARY OF THE VISIT: The patient was interviewed as he was sitting in the dining area, eating his breakfast. He had approximately 3/4 of his breakfast finished. He stopped and engaged readily in conversation with me. The first half of the conversation was much more goal directed and reasonable; as he continued to talk, he mixed nonsensical issues. He does seem to be improving. I did also have him hold his hands out and his tremors of his upper extremities have vastly improved. MENTAL STATUS: He is alert and oriented to person, place, not to time. Mood does seem to be trending towards euthymia. Affect is more appropriate. There is no claudette or hypomania or psychosis now; however, he does sundown and become grossly psychotic as afternoon turns into evening. Nurses report that 4:00 is a pivotal hour for him. PLAN: I will go ahead and change his Depakote Sprinkles to Depakote ER 1500 mg to be given at 1600 hours to see if this will help with some of the sundowning. We will engage in individual and ambrocio milieu activity, returning then to the least restrictive environment when psychiatrically stable. ERIN MCKEON MD CM:PNTRANS [id number] [id number] ERIN MCKEON MD 05/07/18 1530 interface
--- NOTE | ~2018-04-27 | PR ---
[place], [place] PROGRESS NOTE [id number] UNIT #: [id number] ROOM: 317 DOCTOR: ERIN MCKEON MD BIRTHDATE: [birth year] DOS: 05/11/2018 CHIEF COMPLAINT: "Dr. Mckeon, give me a straight answer where am I." SUMMARY OF THE VISIT: The patient was interviewed after he had eaten his breakfast. He was sitting comfortably in the dining area. He engaged readily in conversation. He reported to me that he does not feel that people are giving him the straight answer to where he is at, and I have redirected him that he is at [facility] and that the plan is for him to go to [facility] for further care. He did nod and states that is what his sister, Emely, told him as well. For the most part his conversation with me this morning was goal directed; however, nurses report he has episodes of extreme confusion, paranoia and anxiety. MENTAL STATUS: He is alert and oriented to person, unclear place, certainly not time. Mood does seem to be trending more towards euthymia. Affect is more appropriate. There is no claudette, hypomania or psychosis noted at this time. Short term memory continues to be problematic. PLAN: I will maintain his current psychotropic regimen, continue to engage in individual and ambrocio milieu activity, returning then to the least restrictive environment when psychiatrically stable. ERIN MCKEON MD CM:PNTRANS [phone] ERIN MCKEON MD 05/11/18 1516 interface
--- NOTE | ~2018-04-27 | PR ---
[place], [place] PROGRESS NOTE NAME: BRANDIN AYALA UNIT #: [id number] ROOM: 317 DOCTOR: ERIN MCKEON MD BIRTHDATE: [birth year] DOS: 05/02/2018 CHIEF COMPLAINT: "Oh, hi Dr. Mckeon, its good to see you." SUMMARY OF THE VISIT: The patient was interviewed as he was sitting eating his breakfast. He was much more awake, alert and conversant. Nurses' report that yesterday he had a very good day and that the day was punctuated in the evening with increased agitation and aggression. The patient sundown horribly and became very combative, was pounding on doors and was very physically threatening. Otherwise, during the daytime hours he was pleasant. This morning, he was very pleasant with me and had no recollection of these behaviors. He continues to have significant parkinsonian tremors. MENTAL STATUS: He is alert and oriented with time gaps. Mood does seem to be still labile. Affect is still at times inappropriate. He does not voice hallucinations or delusions currently, but this is still persistent. PLAN: I will discontinue Remeron due to ineffectiveness and start him on trazodone 150 mg at bedtime to combat depression and also to improve sleep. Given the severity of his parkinsonian tremors, I will go ahead and start Sinemet 10-100 one tablet t.i.d. with meals. We will monitor and support, engage in individual and ambrocio milieu activity, returning then to the least restrictive environment when psychiatrically stable. ERIN MCKEON MD CM:PNTRANS [id number] ERIN MCKEON MD 05/02/18 1730 interface
[~2018-04-27 19:25] MED LIST: CYMBALTA30 MG PO; EXELON13.3 MG/21 T; MEMANTINE HCL10 MG PO; MIRAPEX0.25 M1 PO; MIRTAZAPINE15 M2 PO; NATURE'S BLEND F1 MG PO; NORVASC5 MG PO; QUETIAPINE FUMA25 MG PO
[2018-04-27 19:30] VITALS: BP 128/73
[2018-04-27 19:52] LABS: BASO % 0.5 % (0.0-1.0); EOS # 0.1 10*3/uL (0.0-0.4); EOS % 1.7 % (1.0-4.0); HEMATOCRIT 39.7 % (42.0-52.0); HEMOGLOBIN 14.4 g/dl (14.0-18.0); LYMPH # 2.9 10*3/uL (1.3-4.4); LYMPH % 35.7 % (27.0-41.0); MEAN CELL VOLUME 89.4 fl (80.0-94.0); MEAN CORPUSCULAR HGB 32.4 pg (27.0-31.0); MEAN CORPUSCULAR HGB CONC 36.3 g/dl (33.0-37.0); MEAN PLATELET VOLUME 8.7 fl (9.6-12.3); MONO # 0.7 10*3/uL (0.1-1.0); MONO % 8.5 % (3.0-9.0); NEUT # 4.3 10*3/uL (2.3-7.9); NEUT % 53.4 % (47.0-73.0); PLATELET COUNT AUTOMATED 195 10*3/uL (130-400); RED BLOOD COUNT 4.44 10*6/uL (4.50-5.90); RED CELL DISTRI WIDTH 13.2 % (0-14.5)
[2018-04-27 20:06] LABS: ACETAMINOPHEN (TYLENOL) < 5.0 ug/ml (10-30); ALBUMIN 3.7 gm/dl (3.1-4.5); ALKALINE PHOSPHATASE 89 U/L (45-117); BUN 19 mg/dl (7-24); CHLORIDE 106 mmol/L (98-107); CREATININE 0.88 mg/dL (0.70-1.30); ETHYL ALCOHOL < 3.0 mg/dl (<3); POTASSIUM 4.1 mmol/L (3.5-5.1); SGOT/AST 14 IU/L (3-35); SGPT/ALT 14 U/L (12-78); SODIUM 139 mmol/L (136-145); TOTAL PROTEIN 7.1 gm/dL (6.4-8.2)
[2018-04-27 20:31] LABS: BILIRUBIN NEGATIVE (NEGATIVE); BLOOD TRACE-INTACT (NEGATIVE); CLARITY CLEAR (CLEAR); COLOR YELLOW (YELLOW); GLUCOSE NEGATIVE (NEGATIVE); KETONE NEGATIVE (NEGATIVE); LEUKO ESTERASE NEGATIVE (NEGATIVE); NITRITE NEGATIVE (NEGATIVE); PH 5.5 (5.0-9.0); UROBILINOGEN 0.2 E.U./dl (0.2-1.0)
[2018-04-27 20:42] LABS: URINE AMPHETAMINES < 1000 (1000ng/ml); URINE BARBITURATES < 200 (200ng/ml); URINE BENZODIAZEPINES < 200 (200ng/ml); URINE CANNABINOIDS (THC) < 50 (50ng/ml); URINE COCAINE < 300 (300ng/ml); URINE METHADONE < 300 (300ng/ml); URINE OPIATES < 300 (300ng/ml)
[2018-04-27 20:51] LABS: BACTERIA TRACE; RBC 0-2 rbc/hpf (0-2)
[2018-04-27 20:52] LABS: URINE PHENCYCLIDINE < 25 (25ng/ml)
[2018-04-27] MEDS ORDERED: VITAMIN D31000 UNI1 PO (22:29)
[2018-04-27] MEDS ORDERED: COLACE100 MG PO (22:30)
[2018-04-27 22:32] VITALS: BP 134/86
[2018-04-27] MEDS ORDERED: LISINOPRIL10 M1 PO (22:32)
[2018-04-27] MEDS ORDERED: SENNO8.6 MG PO (22:39)
[2018-04-27 23:14] VITALS: BP 134/86
[2018-04-28 06:39] LABS: THYROID STIM HORMONE (HS) 2.26 uIU/ml (0.358-4.75)
[2018-04-28 07:18] LABS: VITAMIN D, 25-HYDROXY 32.7 ng/mL (30-100)
[2018-04-28 08:02] VITALS: BP 125/79
[2018-04-28 20:41] VITALS: BP 128/72
[2018-04-29 07:38] VITALS: BP 102/70
[2018-04-29 20:00] VITALS: BP 110/66
[2018-04-29 22:15] VITALS: BP 98/62
[2018-04-30 07:43] VITALS: BP 103/59
[2018-04-30 20:00] VITALS: BP 108/68
[2018-05-01 07:38] VITALS: BP 120/62
[2018-05-01 20:00] VITALS: BP 126/67
[2018-05-02 07:37] VITALS: BP 122/68
[2018-05-02 19:51] VITALS: BP 101/75
[2018-05-03 07:27] VITALS: BP 106/74
[2018-05-03 19:59] VITALS: BP 108/74
[2018-05-04 08:40] LABS: BASO % 0.4 % (0.0-1.0); EOS # 0.1 10*3/uL (0.0-0.4); EOS % 0.8 % (1.0-4.0); HEMOGLOBIN 13.2 g/dl (14.0-18.0); LYMPH # 1.3 10*3/uL (1.3-4.4); LYMPH % 15.6 % (27.0-41.0); MEAN CELL VOLUME 91.8 fl (80.0-94.0); MEAN CORPUSCULAR HGB 31.9 pg (27.0-31.0); MEAN CORPUSCULAR HGB CONC 34.7 g/dl (33.0-37.0); MEAN PLATELET VOLUME 9.2 fl (9.6-12.3); MONO # 0.5 10*3/uL (0.1-1.0); MONO % 6.4 % (3.0-9.0); NEUT # 6.5 10*3/uL (2.3-7.9); NEUT % 76.4 % (47.0-73.0); PLATELET COUNT AUTOMATED 174 10*3/uL (130-400); RED BLOOD COUNT 4.14 10*6/uL (4.50-5.90); RED CELL DISTRI WIDTH 12.8 % (0-14.5); WHITE BLOOD COUNT 8.5 10*3/uL (4.8-10.8)
[2018-05-04 08:45] LABS: ALBUMIN 3.9 gm/dl (3.1-4.5); ALKALINE PHOSPHATASE 90 U/L (45-117); BUN 24 mg/dl (7-24); CHLORIDE 106 mmol/L (98-107); SGOT/AST 28 IU/L (3-35); SGPT/ALT 23 U/L (12-78); SODIUM 139 mmol/L (136-145); TOTAL PROTEIN 7.2 gm/dL (6.4-8.2)
[2018-05-04 19:36] VITALS: BP 116/72
[2018-05-05 07:41] VITALS: BP 128/66
[2018-05-05 20:00] VITALS: BP 118/57
[2018-05-06 08:02] VITALS: BP 125/61
[2018-05-06 20:00] VITALS: BP 121/60
[2018-05-07 07:42] VITALS: BP 138/72
[2018-05-07 20:00] VITALS: BP 121/84
[2018-05-08 07:27] VITALS: BP 112/60
[2018-05-08 20:00] VITALS: BP 133/77
[2018-05-08 22:29] LABS: ALBUMIN 3.5 gm/dl (3.1-4.5); ALKALINE PHOSPHATASE 93 U/L (45-117); BUN 15 mg/dl (7-24); CHLORIDE 104 mmol/L (98-107); CREATININE 0.85 mg/dL (0.70-1.30); SGOT/AST 6 IU/L (3-35); SGPT/ALT 17 U/L (12-78); SODIUM 138 mmol/L (136-145); TOTAL PROTEIN 7.3 gm/dL (6.4-8.2)
[2018-05-09 07:18] VITALS: BP 118/69
[2018-05-09 20:00] VITALS: BP 102/59
[2018-05-10 07:13] VITALS: BP 116/57
[2018-05-10 20:00] VITALS: BP 125/60
[2018-05-11 07:49] VITALS: BP 146/74
[2018-05-11 20:00] VITALS: BP 149/67
[2018-05-12 07:18] VITALS: BP 104/58
[2018-05-12] MEDS ORDERED: EXELON13.3 MG/21 T (09:41)
[2018-05-12] MEDS ORDERED: DIVALPROEX SOD500 M1 PO (09:41)
[2018-05-12] MEDS ORDERED: TRAZODONE150 MG PO ×2 (09:41)
[2018-05-12] MEDS ORDERED: MEMANTINE HCL10 MG PO (09:41)
[2018-05-12] MEDS ORDERED: ARTANE5 M1 PO (09:41)
[2018-05-12] MEDS ORDERED: HOMEMED PO (09:41)
== END 2018-05-12 15:10 | DRG 57 ==
LOC: ED 19:25 → 3N 22:13
PROVIDERS: Physician Assistant; Registered Nurse; ADMIT Psychiatry & Neurology Psychiatry
PROC: 0HBRXZZ Excision of Toe Nail, External Approach (ICD-10-PCS; principal; 2018-04-30)
DX: G30.9 Alzheimer's disease, unspecified (principal); F23 Brief psychotic disorder; L97.929 Non-pressure chronic ulcer of unspecified part of left lower leg with unspecified severity; F33.3 Major depressive disorder, recurrent, severe with psychotic symptoms; R31.29 Other microscopic hematuria; G20 Parkinson's disease; F02.80 Dementia in other diseases classified elsewhere, unspecified severity, without behavioral disturbance, psychotic disturbance, mood disturbance, and anxiety; F63.81 Intermittent explosive disorder; I10 Essential (primary) hypertension; K21.9 Gastro-esophageal reflux disease without esophagitis; Z88.8 Allergy status to other drugs, medicaments and biological substances; Z87.891 Personal history of nicotine dependence; Z87.442 Personal history of urinary calculi; Z82.0 Family history of epilepsy and other diseases of the nervous system; Z83.79 Family history of other diseases of the digestive system; Z79.899 Other long term (current) drug therapy